=== PATIENT | male | born 1965 | race Two or more races ===

== ENCOUNTER 2021-05-02 08:40 | Day surgery (SDC) | payer OTHER | END 2021-05-02 13:10 | disposition home or self-care (01) | LOC: AMB-ENDOS 08:40 | PROVIDERS: ATTEND Surgery | DX: K62.89 Other specified diseases of anus and rectum (principal); Z20.822 Contact with and (suspected) exposure to COVID-19 ==

== ENCOUNTER 2024-04-04 18:27 | Emergency (ER) | payer OTHER ==
[~2024-04-04] VITALS: Ht 182.9 cm; Wt 113.4 kg
[2024-04-04] MEDS ORDERED: GLUMETZA500 MG PO (18:33)
[2024-04-04] MEDS ORDERED: HYDROCHLOROTHIA25 MG PO (18:34)
[2024-04-04] MEDS ORDERED: COZAAR100 MG PO (18:34)
[2024-04-04] MEDS ORDERED: KETOROLAC TROMETHAMINE 30 MG VIAL IV ONE (20:00)
[2024-04-04] MEDS ORDERED: KETOROLAC TROMETHAMINE 30 MG VIAL ONE (20:39)
[2024-04-04 21:36] LABS: HEMATOCRIT 40.9 % (39.0-48.0); MEAN CORPUSCULAR HEMOGLOBIN 30.2 pg (27.00-32.0); MEAN CORPUSCULAR HGB CONC 34.3 g/dl (32.0-36.0); PLATELET COUNT 259 K/uL (150-450); RED BLOOD COUNT 4.64 M/uL (4.00-6.00); RED CELL DISTRIBUTION WIDTH 13.9 % (11.5-14.5)
[2024-04-04 21:38] LABS: PH,URINE 5.5 (5.0-8.0); URINE APPEARANCE Clear; URINE BILIRRUBIN Negative (NEGATIVE); URINE BLOOD Negative; URINE COLOR Yellow; URINE GLUCOSE Negative (NEGATIVE); URINE KETONE 15 (NEGATIVE); URINE LEUKOCYTE Negative; URINE NITRATE Negative; URINE PROTEIN Negative (NEGATIVE); URINE UROBILINOGEN 0.2 E.U./dl
[2024-04-04 21:41] LABS: URINE BACTERIA 6.2 uL (0.0-1933); URINE EPITHELIAL CELLS 2.1 uL (0.0-38.8); URINE RBC 7.9 uL (0.0-20.8); URINE WBC 3.9 uL (0.0-23.2)
[2024-04-04 21:46] LABS: CALCIUM 9.3 mg/dL (8.5-10.1); CREATININE SERUM 1.05 mg/dL (0.70-1.30); GFR 72.29; POTASSIUM 3.29 mEq/L (3.5-5.1)
[2024-04-04] MEDS ORDERED: PYRIDIUM100 MG PO (22:54)
[2024-04-04] MEDS ORDERED: ORPHENADRINE CITRATE 100 MG TABLET PO STA (23:12)
[2024-04-04] MEDS ORDERED: ORPHENADRINE CITRATE 30 MG/ML AMPUL IM ONE (23:15)
== END 2024-04-04 23:28 ==
LOC: ER 18:29
PROVIDERS: Nurse Practitioner Family
DX: R30.0 Dysuria (principal); R31.9 Hematuria, unspecified; Z87.442 Personal history of urinary calculi; I10 Essential (primary) hypertension; E11.9 Type 2 diabetes mellitus without complications; Z79.84 Long term (current) use of oral hypoglycemic drugs

== ENCOUNTER 2024-09-03 20:16 | Emergency (ER) | payer OTHER ==
[~2024-09-03] VITALS: Ht 182.9 cm; Wt 115.7 kg
[~2024-09-03 20:16] MED LIST: COZAAR100 MG PO; GLUMETZA500 MG PO; HYDROCHLOROTHIA25 MG PO; PYRIDIUM100 MG PO
[2024-09-03] MEDS ORDERED: ECOTRIN81 MG PO (21:09)
[2024-09-03 22:31] LABS: HEMATOCRIT 40.9 % (39.0-48.0); MEAN CELL VOLUME 87.8 fL (80.0-100.00); MEAN CORPUSCULAR HEMOGLOBIN 29.9 pg (27.00-32.0); MEAN CORPUSCULAR HGB CONC 34.1 g/dl (32.0-36.0); PLATELET COUNT 237 K/uL (150-450); RED BLOOD COUNT 4.66 M/uL (4.00-6.00); RED CELL DISTRIBUTION WIDTH 13.5 % (11.5-14.5)
== END 2024-09-03 22:54 | disposition home or self-care (01) ==
LOC: ER 20:16
PROVIDERS: General Practice
DX: R53.81 Other malaise (principal); J11.1 Influenza due to unidentified influenza virus with other respiratory manifestations; Z20.822 Contact with and (suspected) exposure to COVID-19; I10 Essential (primary) hypertension

== ENCOUNTER 2024-10-16 15:13 | Emergency (ER) | payer OTHER ==
[~2024-10-16] VITALS: Ht 182.9 cm; Wt 114.8 kg
[~2024-10-16 15:13] MED LIST changes: +ECOTRIN81 MG PO
[2024-10-16] MEDS ORDERED: KETOROLAC TROMETHAMINE 30 MG VIAL IM STA (16:55)
[2024-10-16] MEDS ORDERED: KETOROLAC TROMETHAMINE 30 MG VIAL ONE (17:13)
== END 2024-10-16 18:57 | disposition home or self-care (01) ==
LOC: ER 15:15
DX: R10.32 Left lower quadrant pain (principal); M25.552 Pain in left hip; I10 Essential (primary) hypertension; E11.9 Type 2 diabetes mellitus without complications; Z79.84 Long term (current) use of oral hypoglycemic drugs